=== PATIENT | male | born 1990 | race Caucasian/White ===

== ENCOUNTER 2016-08-06 22:24 | Emergency (ER) | payer OTHER ==
[~2016-08-06] VITALS: Ht 182.9 cm; Wt 105.0 kg
[~2016-08-06 22:24] MED LIST: DICL50 PO; HYDR-3533 PO
[2016-08-06 22:28] VITALS: BP 132/72; PULSE 88; RESP 20; TEMP 98.7
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
[2016-08-06] MEDS ORDERED: ORPHENADRINE INJ 60 MG/2 ML AMP IM ONE (23:00)
[2016-08-06] MEDS ORDERED: KETOROLAC TROMETHAMINE 60 MG/2 ML (IM) VIAL IM ONE (23:00)
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
[2016-08-06] MEDS ORDERED: ULTR50TA5 PO (23:57)
[2016-08-06] MEDS ORDERED: CYCL1TAB29 PO (23:57)
[2016-08-06] MEDS ORDERED: IBUP800T23 PO (23:57)
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
== END 2016-08-07 01:07 | disposition home or self-care (01) ==
LOC: NEPD 22:24
DX: S16.1XXA Strain of muscle, fascia and tendon at neck level, initial encounter (principal); S29.012A Strain of muscle and tendon of back wall of thorax, initial encounter; S60.222A Contusion of left hand, initial encounter; V43.52XA Car driver injured in collision with other type car in traffic accident, initial encounter; Y93.9 Activity, unspecified; Y92.410 Unspecified street and highway as the place of occurrence of the external cause; Y99.8 Other external cause status
CPT/HCPCS: 72125; 72128; 73130; 96372; 99284; J1885; J2360; L0150